=== PATIENT | female | born 1995 | race Caucasian/White ===

== ENCOUNTER 2016-08-11 01:02 | Emergency (ER) | payer MEDICAID ==
--- NOTE | 2016-08-11 01:23 | ERNOTE ---
ENT HPI Presenting Symptoms: dental pain Time Seen by Provider: 08/11/16 01:16 Source: patient Exam Limitations: no limitations - Immun/Allergies/Home Medications Immunizations: IMMUNIZATION HX Immunizations Up to Date No History of Influenza Vaccine Yes Allergies/Adverse Reactions: Allergies Allergy/AdvReac Type Severity Reaction Status Date / Time No Known Allergies Allergy Verified 08/11/16 01:12 Home Medications: HOME MEDICATIONS Ibuprofen [Motrin] 800 mg PO TID PRN #15 tablet 08/11/16 [Last Taken Unknown] Penicillin V Potassium [Pen-Vee K] 500 mg PO QID #40 tab 08/11/16 [Last Taken Unknown] - History of Present Illness Narrative: pt has dental pain and dental caries and has not seen a dentist Review of Systems - Review of Systems Constitutional: Present: no symptoms reported EYE: Present: no symptoms reported ENT: Present: See HPI Respiratory: Present: no symptoms reported Cardiology: Present: no symptoms reported Gastrointestinal/Abdominal: Present: no symptoms reported Genitourinary: Present: no symptoms reported - Patient's Past Medical History Patient History - Medical: No pertinent hx Patient History - Cardiac/Respiratory: No pertinent hx Patient History - Cancer: No Hx of Cancer Patient History - Surgical Procedures: No surgical history Patient History - Other: None LMP (females 10-50): 3 weeks - Social History Living Situations: significant other Abuse History: No History of abuse Psych History: No pertinent hx Smoking Status: Never smoker Alcohol Use: none Drug Use: none - Immunizations Immunizations Up to Date: No History of Influenza Vaccine: Yes Physical Exam - Physical Exam General Appearance: Present: wd/wn, alert, no apparent distress Ears, Nose, Throat: Present: normal pharynx, other - extremely poor dental hygiene with fractured and decayed tooth and swelling of the gingival area around tooth number 1 Respiratory: Present: no respiratory distress, normal breath sounds, no accessory muscle use, chest nontender, lungs clear Cardiovascular/Chest: Present: regular rate, rhythm, no murmur, normal peripheral pulses Gastrointestinal/Abdominal: Present: normal bowel sounds Extremity Exam: Present: normal inspection Neurological Exam: Present: alert, oriented ED Progress - Vital Signs Patient's Vital Signs:: I have reviewed the patient's vital signs. Vital Signs: Vital Signs 08/11/16 01:06 Temperature 36.2 C L Pulse Rate 83 Respiratory 14 Rate Blood Pressure 121/66 O2 Sat by Pulse 100 Oximetry - Progress/Reassessment Chief Complaint: Dental Problem Departure Clinical Impression: Dental caries - Departure Disposition: Home self-care Condition: Good Instructions: Dental Care and Dentist Visits Referrals: Nato Duggan MD [Primary Care Provider] - Prescriptions: Ibuprofen [Motrin] 800 mg PO TID PRN #15 tablet PRN Reason: Pain Penicillin V Potassium [Pen-Vee K] 500 mg PO QID #40 tab
--- OUTSIDE RECORDS SUMMARY | 2016-08-11 01:34 | XMS REPORT | Continuity of Care Document ---
:1995 Author Organization [facility] ([facility]) [place] [address] Phone [phone] Care Team Providers Name Role Phone Provider, No-Primary Care Primary Care Provider Unavailable Source Comments This disclosure is being made pursuant to the Care Everywhere program, applicable federal and state laws, and may not contain all informaitonavailable regarding this patient.[facility] ([facility]) Active Allergies and Adverse Reactions No Known Allergies Current Medications No known medications Active Problems Not on file Most Recent Encounters Date Type Specialty Providers Description 05/14/2016 Telephone [facility] Cecilia Hernandez RN Social History Tobacco Use Types Packs/Day Years Used Date Never Smoker Smokeless Tobacco: Never Used Alcohol Use Drinks/Week oz/Week Comments Yes Rarely; once per month Last Filed Vital Signs Vital Sign Reading Time Taken Blood Pressure 108/74 05/08/2016 9:24 PM [employer] Pulse 87 05/08/2016 9:24 PM [employer]ATE [employer] ASS[employer] Temperature 36.5 C (97.7 F) 05/08/2016 9:24 PM [employer]ATE [employer] ASSISTANT Respiratory Rate 16 05/08/2016 9:24 PM [employer]ATE [employer] ASSISTANT Height 1.651 m (5' 5") 05/08/2016 9:24 PM [employer]ATE [employer] ASSISTANT Weight 61.236 kg (135 lb) 05/08/2016 9:24 PM [employer]PORATE [employer] ASSISTANT Body Mass Index 22.47 05/08/2016 9:24 PM COR[employer]ATE [employer] ASSISTANT Oxygen Saturation 98% 05/08/2016 9:24 PM CORPORATE LAW ASSISTANT Plan of Care Health Maintenance Due Date Last Done Comments Hepatitis B Vaccine (1 of 3 - Primary Series) 1994 HPV Vaccine (1 of 3 - Female/Unknown 3 Dose Series) 2005 Tdap Vaccine 2005 Cervical Cancer Screening 2012 Lipid Disorder Screening 2012 MMR Vaccine 2012 Td Vaccine 2012 Varicella Vaccine (1 of 2 - Adult - No Evidence of 2012 Immunity) Influenza Vaccine: Seasonal (#1) 10/31/2015 Results from Last 3 Months Not on file
[2016-08-11 01:51] VITALS: BP 123/64
== END 2016-08-11 01:29 | disposition home or self-care (01) ==
LOC: ER 01:02
DX: K02.9 Dental caries, unspecified (principal)

== ENCOUNTER 2020-05-17 15:52 | Inpatient (IN) ==
[2020-05-17] MEDS ORDERED: ONDANSETRON 4 MG TAB.RAPDIS PO PRN (16:05)
[2020-05-17] MEDS ORDERED: OXYTOCIN/0.9 % SODIUM CHLORIDE 30 UNITS/500 ML BAG IV ONE (16:05)
[2020-05-17] MEDS ORDERED: RINGER'S SOLUTION,LACTATED 1,000 ML IV ONE (16:05)
[2020-05-17] MEDS ORDERED: MISOPROSTOL 100 MCG TABLET VG PRN (16:05)
[2020-05-17] MEDS ORDERED: DEXTROSE 5%-LACTATED RINGERS 1,000 ML IV PRN (16:05)
--- NOTE | 2020-05-17 16:30 | HP ---
Chief Complaint - Chief Complaint Date of Service: 05/17/20 Time of Service: 16:17 Chief Complaint: IOL for preeclampsia History of Present Illness: 25 yo at 38w1d presents to L&D for induction of labor due to preeclampsia. Pt presented to office today for routine OB visit where she was noted to have elevated BPs and 3+ protein on urine dip. Labs revealed a Pr/Cr ratio of 1016 with normal platelets and LFTs. Patient c/o increased swelling of face, hands, and feet as well as frequent headaches (none currently). Denies epigastric pain, N/V/F/C, decreased FM, or vaginal d/c or bleeding. This complicated by anemia, anxiety, HSV carrier, smoker, and now preeclampsia. Rh positive Rubella immune GBS negative Medical History (Last Reviewed 05/17/20 @ 16:21 by Jose Juan Churchill DO) Vaginal yeast infection (Acute) Vapes nicotine containing substance (Acute) HSV antigen DIF positive (Chronic) Anemia Onset Date: Unknown Cataract Onset Date: Unknown HSV-2 (herpes simplex virus 2) infection Onset Date: ~2016 Surgical History: Surgical History (Last Reviewed 05/17/20 @ 16:21 by Jose Juan Churchill DO) Hx of cataract removal with insertion of prosthetic lens Onset Date: ~2018 Family History: Family History (Last Reviewed 05/17/20 @ 16:21 by Jose Juan Churchill DO) Mother Anemia Father Alive and well Social History: (Last Reviewed 05/17/20 @ 16:21 by Jose Juan Churchill DO) Social History: Marital status: Single household members: family current occupational status: unemployed Highest level of school completed/degree received: 11th grade Service: No Tobacco: Smoking Status: Current every day smoker tobacco type: e-cigarettes Alcohol: alcohol intake: former details: none since +UPT Substance Use: substance use type: does not use Dietary Habits: caffeine: Yes caffeine comment: 2 daily Type: carbonated beverages Review Of Systems (GEN) - Review of Systems Generalized/Overall Review: Present: No Symptoms Reported EENTM: Present: No Symptoms Reported Respiratory: Present: No Symptoms Reported Cardiac: Present: Edema Abdominal: Present: No Symptoms Reported Genitourinary: Present: No Symptoms Reported Musculoskeletal: Present: No Symptoms Reported Neurological: Present: No Symptoms Reported Skin: Present: No Symptoms Reported Endocrine: Present: No Symptoms Reported Immunizations: IMMUNIZATION HX Immunizations Up to Date No History of Influenza Vaccine Yes Allergies/Adverse Reactions: Allergies Allergy/AdvReac Type Severity Reaction Status Date / Time No Known Allergies Allergy Verified 05/17/20 15:56 Home Medications: HOME MEDICATIONS ferrous sulfate 325 mg (65 mg iron) tablet 325 mg PO BID #30 tab 02/23/20 [Last Taken Unknown] hydroxyzine pamoate 25 mg capsule 25 mg PO Q4H PRN #30 cap 04/04/20 [Last Taken Unknown] valacyclovir 500 mg tablet 500 mg PO BID #60 tab 05/09/20 [Last Taken Unknown] Vits96/Iron Fum/Folic [ S] 1 tab PO DAILY 05/17/20 [Last Taken Unknown] Exam - Exam Vital Signs: Vital Signs - Last Taken Temp 36.6 C 05/17/20 16:15 Pulse 83 05/17/20 16:15 Resp 20 05/17/20 16:15 BP 139/93 H 05/17/20 16:15 Pulse Ox 100 05/17/20 16:15 Constitutional: Present: Alert, Oriented x3, Cooperative, No distress ENT Exam: Present: hearing grossly normal Neck: Present: normal inspection. Absent: thyromegaly Breasts: Present: Exam deferred Respiratory: Present: lungs clear, no respiratory distress Cardiovascular/Chest: Present: normal peripheral pulses, regular rate, rhythm, edema - 1+ Abdomen: Present: soft, nontender, no rebound tenderness, other - Gravid Extremity: Present: non-tender, no calf tenderness, pedal edema Skin Exam: Present: normal color, warm/dry, no cyanosis Lymphatic: Present: no adenopathy Neurologic: Present: alert, normal mood/affect, oriented x 3 Appearance: Present: appropriate appearance, appropriate insight Eye contact: Present: cooperative, good eye contact, normal speech Thoughts: Present: normal thought pattern, normal mood /affect Assessment/Plan - Assessment/Plan (1) Preeclampsia Assessment: Admit for induction of labor. Epidural PRN. Magnesium sulfate if develops severe features. Seizure precautions. Problem: Acute Qualifiers: Trimester: third trimester Qualified Code(s): O14.93 - Unspecified pre- eclampsia, third trimester (2) Anxiety Problem: Inactive (3) Anemia affecting Problem: Chronic Qualifiers: Trimester: third trimester Qualified Code(s): O99.013 - Anemia complicating , third trimester (4) Vapes nicotine containing substance Problem: Chronic (5) HSV antigen DIF positive Problem: Chronic
[2020-05-17] MEDS ORDERED: ONDANSETRON HCL/PF 2 MG/ML VIAL IV PRN (21:47)
[2020-05-17] MEDS ORDERED: BUPIVACAINE HCL/0.9 % NACL/PF 250 ML EP PRN (21:47)
[2020-05-17] MEDS ORDERED: NALOXONE HCL 1 MG/1 ML SYRG IV PRN (21:47)
[2020-05-17] MEDS ORDERED: fentaNYL CITRATE/PF 50 MCG/ML AMPUL IT SCH (22:00)
--- NOTE | 2020-05-17 23:10 | ANES ---
Anesthesia Pre Procedure Eval Vitals/Labs: Last Vital Signs Temp 37.0 C 05/17/20 22:06 Pulse 75 05/17/20 22:06 Resp 20 05/17/20 22:06 BP 149/84 H 05/17/20 22:06 Pulse Ox 100 05/17/20 22:06 HOME MEDICATIONS ferrous sulfate 325 mg (65 mg iron) tablet 325 mg PO BID #30 tab 02/23/20 [Last Taken Unknown] hydroxyzine pamoate 25 mg capsule 25 mg PO Q4H PRN #30 cap 04/04/20 [Last Taken Unknown] valacyclovir 500 mg tablet 500 mg PO BID #60 tab 05/09/20 [Last Taken Unknown] Vits96/Iron Fum/Folic [ S] 1 tab PO DAILY 05/17/20 [Last Taken Unknown] Allergies/Adverse Reactions: Allergies Allergy/AdvReac Type Severity Reaction Status Date / Time No Known Allergies Allergy Verified 05/17/20 15:56 - Planned Procedure Planned Procedure: induction Medication List Reviewed:: Yes Allergies Verified: Yes Medical History (Last Reviewed 05/17/20 @ 23:09 by Kang Felix CRNA) Vaginal yeast infection (Acute) Vapes nicotine containing substance (Chronic) HSV antigen DIF positive (Chronic) Anemia Onset Date: Unknown Cataract Onset Date: Unknown HSV-2 (herpes simplex virus 2) infection Onset Date: ~2016 Surgical History (Last Reviewed 05/17/20 @ 23:09 by Kang Felix CRNA) Hx of cataract removal with insertion of prosthetic lens Onset Date: ~2018 Family History (Last Reviewed 05/17/20 @ 16:21 by Jose Juan Churchill DO) Mother Anemia Father Alive and well - Family Anesthesia History Family History:: no untoward family reactions to anesthesia - Airway/Neck/Teeth Within Normal Limits:: Yes Teeth Condition: intact Neck Exam: full range of motion Mallampatti Score: 1 Thyromental (T-M) distance: > 6 cm Mandibulo Hyoid distance: > 3 cm - Respiratory Respiratory Physical: lungs clear Smoking Status: Current every day smoker Discussed smoking cessation including day of surgery: Yes Sleep Apnea currently treated: No Sleep Apnea by current assessment: No - Cardiovascular Tolerate Activity: Good Heart Sounds: S1 & S2, Regular - Gastrointestinal NPO since: 1999 - Anesthesia Assessment and Plan ASA Class: PS, II, E Anesthesia Type Plan: Epidural Planned difficult intubation/equipment available: No
--- NOTE | 2020-05-17 23:10 | ANES ---
Post Anesthesia Discharge - Transfer of Care Transfer of Care handoff given to nurse: Yes - Anesthesia Post Op Note Anesthesia Post Op Note: Care transferred to OB RN
--- NOTE | 2020-05-17 23:11 | ANES ---
Post Anesthesia Assessment - Vital Signs Vitals: Last Vital Signs Temp 37.0 C 05/17/20 22:06 Pulse 75 05/17/20 22:06 Resp 20 05/17/20 22:06 BP 149/84 H 05/17/20 22:06 Pulse Ox 100 05/17/20 22:06 Airway Patency: Normal - Mental Status Level Of Consciousness: Awake - Pain Level Pain Score: 2 - N/V Assessment Nausea/Vomiting Presence: None Dehydration:: No
--- NOTE | 2020-05-17 23:12 | ANES ---
Anesthesia Procedure Note Procedure Note: ANESTHESIA PROCEDURE NOTE Date of Procedure: 05/17/2020 Time of procedure: 2249. Performed by: Jose Felix CRNA Technical Administrative Assistant: None. Preprocedure diagnosis: Active labor. Post procedure diagnosis: Same. Procedure: Insertion of labor epidural. Indications: The patient is a 25-year-old multigravida female in active labor requesting labor epidural for pain management. Findings: See below. Details of the procedure: The patient was placed in a sitting position. Back was prepped with DuraPrep. Patient was then draped in a sterile fashion. Lidocaine 1% was infiltrated to the skin and subcutaneous tissues at the level of the L3 4 interspace. The epidural space was identified using a 18-gauge Tuohy needle with [id number] technique. 20 mcg fentanyl was given intrathecally using a 27 ga. spinal needle. Epidural catheter was inserted without difficulty. Negative test dose was elicited using 5 mL of 1.5% preservative-free lidocaine plus epinephrine 1 200,000. The epidural catheter was then taped and secured in place. EBL: Minimal. Fluids: N/A. Specimen: N/A. Post procedure condition: The patient tolerated the procedure well. No complications were noted. Thank you for this consultation. Parish CRNA
[2020-05-18] MEDS ORDERED: OXYTOCIN/0.9 % SODIUM CHLORIDE 30 UNITS/500 ML BAG IV ONE (05:28)
[2020-05-18] MEDS ORDERED: BISACODYL 10 MG SUPP.RECT RC PRN (05:28)
[2020-05-18] MEDS ORDERED: BENZOCAINE/MENTHOL 81 SPRAY CAN TP PRN (05:28)
[2020-05-18] MEDS ORDERED: HYDROCORTISONE 30 APPL TUBE TP PRN (05:28)
[2020-05-18] MEDS ORDERED: IBUPROFEN 800 MG TABLET PO PRN (05:28)
[2020-05-18] MEDS ORDERED: SENNOSIDES 8.6 MG TABLET PO PRN (05:28)
[2020-05-18] MEDS ORDERED: GLYCERIN/WITCH HAZEL LEAF 40 APPL BOX TP PRN (05:28)
[2020-05-18] MEDS ORDERED: hydrOXYzine PAMOATE 25 MG CAPSULE PO PRN (05:29)
--- NOTE | 2020-05-18 05:32 | OR ---
Operative Report - Dictated Report Narrative: Spontaneous vaginal delivery of vigorously crying viable female at 0506 on 05/18/2020 with Apgars 9 and 9, weighing 2668 g in KAMRYN position with left hand at chin. Cord clamping delayed approximately 1 minute Placenta delivered complete, intact, with three vessel cord Estimated blood loss: Less than 50 ml Anesthesia: Epidural Lacerations: Less than 1 cm first-degree vaginal laceration with no repair necessary.```` History for MU History for Definition: * The number of deliveries resulting in a live the patient experienced prior to current hospitalization * The previous delivery of live twins or any live multiple gestation is considered one live event. *If primagravida or nulliparous is documented select zero for the number of previous live births. Live Events: Live Events: 0
[2020-05-18] MEDS: IBUPROFEN 800 MG TABLET PO PRN (07:39)
[2020-05-18] MEDS: PRENATAL VITS96/IRON FUM/FOLIC 1 TAB TABLET PO SCH (09:12)
[2020-05-18] MEDS: FERROUS SULFATE 325 MG TABLET PO SCH ×2 (09:12→20:48)
[2020-05-18] MEDS: DOCUSATE SODIUM 100 MG CAPSULE PO SCH ×2 (09:12→20:48)
[2020-05-18] MEDS: oxyCODONE HCL/ACETAMINOPHEN 1 TAB TABLET PO PRN (19:28)
[2020-05-19] MEDS: PRENATAL VITS96/IRON FUM/FOLIC 1 TAB TABLET PO SCH ×2 (07:16→11:23)
[2020-05-19] MEDS: FERROUS SULFATE 325 MG TABLET PO SCH ×2 (07:16→11:22)
[2020-05-19] MEDS: DOCUSATE SODIUM 100 MG CAPSULE PO SCH ×2 (07:16→11:23)
[2020-05-19] MEDS: oxyCODONE HCL/ACETAMINOPHEN 1 TAB TABLET PO PRN (07:17)
[2020-05-19] MEDS: IBUPROFEN 800 MG TABLET PO PRN (07:17)
[2020-05-19 07:54] VITALS: BP 144/81
--- NOTE | 2020-05-19 08:56 | PN ---
Subjective - Date and Time Seen Date: 05/19/20 Time: 08:54 Objective - Vitals Vitals: Last Vital Signs Temp 36.6 C 05/19/20 07:05 Pulse 78 05/19/20 07:05 Resp 18 05/19/20 07:05 BP 144/81 H 05/19/20 07:05 Pulse Ox 99 05/19/20 07:05 Patient denies complaints. Specifically denies headache, visual changes, or epigastric pain. Breast-feeding. Lochia wnl abdomen - soft, nontender Uterus -firm, at umbilicus - 1 Patella DTR-0/4. No calf tenderness Impression: day #1 - s/p spontaneous vaginal delivery. Preeclampsia- stable. Anxiety-stable. Baby transferred to [facility] for arrhythmia. Plan: Continue routine care. Early discharge so mother can be with baby at [facility]. Preeclampsia precautions. Cauti Physician Documentation - Urinary Catheter Management Urethral ([place]) Date of Insertion: 05/17/20 Time of Insertion: 00:05 Date of Removal: 05/18/20 Time of Removal: 04:55 Assessment/Plan - Problems/Diagnosis (1) Preeclampsia Problem: Acute Qualifiers: Trimester: third trimester Qualified Code(s): O14.93 - Unspecified pre- eclampsia, third trimester (2) Anxiety Problem: Inactive (3) Anemia affecting Problem: Chronic Qualifiers: Trimester: third trimester Qualified Code(s): O99.013 - Anemia complicating , third trimester (4) Vapes nicotine containing substance Problem: Chronic (5) HSV antigen DIF positive Problem: Chronic
--- NOTE | 2020-05-19 09:01 | DS ---
OB Discharge Summary (1) Preeclampsia Status: Resolved Qualifiers: Trimester: third trimester Qualified Code(s): O14.93 - Unspecified pre- eclampsia, third trimester (2) Anxiety Status: Inactive (3) Anemia affecting Status: Chronic Qualifiers: Trimester: third trimester Qualified Code(s): O99.013 - Anemia complicating , third trimester (4) Vapes nicotine containing substance Status: Chronic (5) HSV antigen DIF positive Status: Chronic Delivery Date: 05/18/20 Delivery Time: 05:06 :: 1 Para:: 1 Gestational weeks:: 38 Gestational days:: 2 Intrapartum Procedures: Spontaneous Vaginal Delivery, Delivered, Anesthesia - Epidural Procedures: None /OP Complications: No Complications Discharge Diagnosis: Term -Delivered - Discharge Information Date of Discharge: 05/19/20 Hospital Course: 25-year-old 1 now para 1 admitted at 38 1/7 weeks for induction of labor due to preeclampsia. Her blood pressures remained in the mild range throughout labor and her course. Delivery was uncomplicated. course was complicated by her baby's arrhythmia which required transfer to [facility] for further evaluation/treatment. Discharge Location: Home Disposition: Home self-care Condition: Good Activity on Discharge:: Activity as tolerated, Pelvic Rest Discharge Diet: General/regular food Complete Home Medications List: Complete Home Medication List: ferrous sulfate 325 mg (65 mg iron) tablet 325 mg PO BID #30 tab 02/23/20 hydroxyzine pamoate 25 mg capsule 25 mg PO Q4H PRN #30 cap 04/04/20 Vits96/Iron Fum/Folic [ S] 1 tab PO DAILY 05/17/20 - Plan Discharge to:: Home Follow up in office in:: 1 week Comment:: Preeclampsia precautions. - Information Weight (Grams): 2,668 Infant Sex: Female Score 1 min: 9 Score 5 min: 9 Infant Complications: Other Other Complications: heart arrhythmia, respiratory distress- transferred to [facility] [place]
== END 2020-05-19 10:35 | disposition home or self-care (01) | DRG 807 ==
LOC: OB 15:52
PROVIDERS: ADMIT Obstetrics & Gynecology; ATTEND Obstetrics & Gynecology